=== PATIENT | female | born 1990 | race Hispanic/Latino ===

== ENCOUNTER 2021-05-09 12:52 | Emergency (ER) | payer OTHER ==
[~2021-05-09] VITALS: Ht 149.9 cm; Wt 72.6 kg
[2021-05-09] MEDS ORDERED: IBUPROFEN600 MG PO (15:16)
[2021-05-09] MEDS ORDERED: IBUPROFEN 600 MG TAB PO STA (15:17)
== END 2021-05-09 15:36 | disposition home or self-care (01) ==
LOC: ER 13:21
DX: M25.561 Pain in right knee (principal); W01.0XXA Fall on same level from slipping, tripping and stumbling without subsequent striking against object, initial encounter; Y93.01 Activity, walking, marching and hiking; Y99.0 Civilian activity done for income or pay
CPT/HCPCS: 99283